=== PATIENT | female | born 1995 | race Asian ===

== ENCOUNTER 2019-10-30 12:11 | Emergency (ER) | payer OTHER ==
[~2019-10-30] VITALS: Ht 162.6 cm; Wt 54.4 kg
[2019-10-30 12:30] VITALS: BP 101/62
--- NOTE | 2019-10-30 12:49 | Diagnostic Imaging Report ---
Indication: Cough Technique: One view of the chest Comparison: none Findings: There is dense consolidation at the right lateral lung base. Left lung and bilateral pleural spaces are clear. Probable nipple shadow overlies the left lung base. The heart size is normal Impression: Evidence of right lateral basilar pneumonia This agrees with the preliminary interpretation provided overnight by [facility].
[2019-10-30] MEDS ORDERED: Azithromycin 250mg tab ORAL ONE (13:00)
[2019-10-30 13:13] LABS: BASOPHILS % (AUTO) 1.2 % (0.0-2.0); EOSINOPHILS % (AUTO) 0.1 % (0.0-3.0); HEMATOCRIT 43.6 % (37.0-47.0); HEMOGLOBIN 15.1 G/DL (12.0-16.0); LYMPHOCYTES % (AUTO) 5.3 % (20.0-45.0); MEAN CORPUSCULAR VOLUME 93 FL (80-99); MONOCYTES % (AUTO) 11.6 % (1.0-10.0); NEUTROPHILS % (AUTO) 81.9 % (45.0-75.0); PLATELET COUNT 243 K/UL (150-450); RED CELL DISTRIBUTION WIDTH 10.9 % (11.6-14.8); WHITE BLOOD COUNT 13.2 K/UL (4.8-10.8)
--- NOTE | 2019-10-30 13:14 | NUR ---
ED Nurse Note: Patient arrived to ED by car from home c/o flu-like s/s for 1 week. Patient has 8/10 neck pain. Patient AxO x 4, VSS. No s/s of acute distress. Bed in lowest position.
[2019-10-30 13:18] LABS: APPEARANCE,URINE CLEAR; BILIRUBIN, URINE NEGATIVE (NEGATIVE); GLUCOSE, URINE (UA) NEGATIVE (NEGATIVE); KETONES,URINE 3+ (NEGATIVE); LEUKOCYTE ESTERASE ,URINE 1+ (NEGATIVE); NITRITE,URINE NEGATIVE (NEGATIVE); PH,URINE 6 (4.5-8.0); PROTEIN,URINE 2+ (NEGATIVE); UROBILINOGEN,URINE 1 MG/DL (0.0-1.0)
--- NOTE | 2019-10-30 13:21 | NUR ---
ED Nurse Note: Zithromax given to DEEJAY Alvarez as patient felt nauseous.
[2019-10-30 13:27] LABS: ANION GAP 10 mmol/L (5-15); BLOOD UREA NITROGEN 11 mg/dL (7-18); CALCIUM 8.8 MG/DL (8.5-10.1); CARBON DIOXIDE 29 MMOL/L (21-32); CHLORIDE 103 MMOL/L (98-107); CREATININE 0.8 MG/DL (0.55-1.30); POTASSIUM 3.6 MMOL/L (3.5-5.1); SODIUM 142 MMOL/L (136-145)
[2019-10-30 13:30] LABS: ALANINE AMINOTRANSFERASE 19 U/L (12-78); ALBUMIN 3.5 G/DL (3.4-5.0); ALBUMIN/GLOBULIN RATIO 0.8 (1.0-2.7); ALKALINE PHOSPHATASE 58 U/L (46-116); ASPARTATE AMINO TRANSFERASE 15 U/L (15-37); BILIRUBIN,TOTAL 0.3 MG/DL (0.2-1.0)
[2019-10-30 13:32] LABS: COLOR,URINE YELLOW
--- NOTE | 2019-10-30 13:37 | Emergency Room Report ---
History of Present Illness General Chief Complaint: Flu Like Symptoms Source: Patient Present Illness HPI 24-year-old female with no significant past medical history here complaining of 1 week of fever, headache, neck pain, chills, shortness of breath, and cough. Patient reports that she was seen earlier this week at the urgent care and was given tramadol for neck pain. No imaging was done. Patient denies any recent travel, or living with rheumatoid. No meningismus is noted. Patient has full range of motion of her neck. Patient appears to be febrile upon arrival. Reports that she has been taking Tylenol and ibuprofen for symptom relief. Denies any chest pain, palpitation, abdominal pain, urinary frequency at this time. Patient complains of nausea and few bouts of nonbloody emesis. Denies diarrhea. Denies all other associated symptoms. Denies drug use, tobacco smoke , alcohol intake. Allergies: Coded Allergies: APPLE (Verified Allergy, Mild, itchy throat and mouth, 10/30/19) PEACH (Verified Allergy, Mild, itchy throat and mouth, 10/30/19) PEAR (Verified Allergy, Mild, itchy throat and mouth, 10/30/19) Patient History Past Medical History: see triage record Past Surgical History: unable to obtain Pertinent Family History: none Last Menstrual Period: unk, pt has IUD Now: No Immunizations: UTD Reviewed Nursing Documentation: PMH: Agreed; PSxH: Agreed Nursing Documentation-PMH Hx Neurological Problems: Yes - chronic migraines Review of Systems All Other Systems: negative except mentioned in HPI Physical Exam Vital Signs Date Time Temp Pulse Resp B/P (MAP) Pulse Ox O2 Delivery O2 Flow Rate FiO2 10/30/19 12:18 100.2 123 18 101/62 (75) 93 Room Air Sp02 EP Interpretation: reviewed, normal General Appearance: no apparent distress, alert, GCS 15, non-toxic Head: normocephalic, atraumatic Eyes: bilateral eye normal inspection, bilateral eye PERRL ENT: hearing grossly normal, no angioedema, normal voice, nasal congestion, tonsillar swelling Neck: full range of motion, supple, thyroid normal, no meningismus, no bony tend, supple/symm/no masses Respiratory: chest non-tender, no rhonchi, no respiratory distress, no retraction, no accessory muscle use, crackles - RLL Cardiovascular #1: normal inspection, normal peripheral pulses, no murmur Cardiovascular #2: 2+ carotid (R), 2+ carotid (L), 2+ radial (R), 2+ radial (L) Gastrointestinal: non tender, soft Rectal: deferred Genitourinary: no CVA tenderness Musculoskeletal: back normal, normal range of motion, no calf tenderness, gait/ station normal, non-tender Neurologic: alert, motor strength/tone normal, oriented x3, sensory intact, responsive, speech normal Psychiatric: judgement/insight normal Skin: no rash Lymphatic: no adenopathy Medical Decision Making PA Attestation All my diagnosis and treatment plans were reviewed ad discussed with my supervising physician Dr. Walls Diagnostic Impression: Primary Impression: Pneumonia Additional Impression: Nausea & vomiting ER Course 24-year-old female with no significant past medical history here complaining of 1 week of fever, headache, neck pain, chills, shortness of breath, and cough. Patient reports that she was seen earlier this week at the urgent care and was given tramadol for neck pain. No imaging was done. Patient denies any recent travel, or living with rheumatoid. No meningismus is noted. Patient has full range of motion of her neck. Patient appears to be febrile upon arrival. Reports that she has been taking Tylenol and ibuprofen for symptom relief. Denies any chest pain, palpitation, abdominal pain, urinary frequency at this time. Patient complains of nausea and few bouts of nonbloody emesis. Denies diarrhea. Denies all other associated symptoms. Denies drug use, tobacco smoke , alcohol intake. Ddx considered but are not limited to: Meningitis, strep pharyngitis, bronchitis , PNA, URI viral, bacterial bronchitis, appendicitis Vital signs: are WNL, pt. is febrile H&PE are most consistent with: Pneumonia, nausea vomiting ORDERS: Chest x-ray, EKG, CBC, CMP, UA, urine tox screen, urine test, azithromycin, Phenergan, albuterol, Zofran ED INTERVENTIONS: Zofran, NS bolus DISCHARGE: At this time pt. is stable for d/c to home. Will provide printed patient care instructions, and any necessary prescriptions. Care plan and follow up instructions have been discussed with the patient prior to discharge. Due to patient being young and having no comorbidities remained stable patient to be discharged and treated as an outpatient for pneumonia. Nausea vomiting secondary to her pneumonia. Patient to follow with primary care provider, worsening symptoms return to emergency room. At this time very low suspicion for meningitis patient tested negative for meningismus no photophobia was noted. Patient blood count was within normal limits. However advised patient to return to the emergency room with increased fever, headache, photophobia, dizziness, neck stiffness. EKG Diagnostic Results ST Segments: no acute changes Chest X-Ray Diagnostic Results Chest X-Ray Diagnostic Results : Chest X-Ray Ordered: Yes # of Views/Limited/Complete: 1 View Indication: Shortness of Breath EP Interpretation: Yes ARI Xray: Interpretation reviewed, by supervising MD, and agrees with findings. Interpretation: other - Infiltrates noted in the right lower lobe Impression: Other - Pneumonia Electronically Signed by: Daniel Richards PA-C Last Vital Signs Date Time Temp Pulse Resp B/P (MAP) Pulse Ox O2 Delivery O2 Flow Rate FiO2 10/30/19 12:30 123 18 Room Air 10/30/19 12:30 100.2 101/62 93 Disposition: HOME, SELF-CARE Condition: Stable Scripts Albuterol Sulfate (VENTOLIN HFA) 18 Gm Hfa.aer.ad 2 PUFFS INH EVERY 6 HOURS, #18 GM 0 Refills Prov: Daniel Barnes 10/30/19 Ondansetron (Zofran) 4 Mg Tablet 4 MG ORAL Q6H PRN for Nausea & Vomiting, #10 TAB Prov: Daniel Barnes 10/30/19 Promethazine Hcl (PROMETHAZINE HCL*) 6.25 Mg/5 Ml Syrup 5 ML ORAL Q6H, #120 ML 0 Refills Prov: Daniel Barnes 10/30/19 Azithromycin* (ZITHROMAX*) 250 Mg Tablet 250 MG ORAL DAILY, #6 TAB 0 Refills Take two tables once daily for 1 day, then one tablet once daily for 4 days. Prov: Daniel Barnes 10/30/19 Referrals: NOT CHOSEN IPA/,REFERRING (PCP) Patient Instructions: Community-Acquired Pneumonia, Adult, [id number], Nausea and Vomiting, Adult, [id number] Additional Instructions: Take medication as directed, increase oral hydration, follow-up with your primary care provider and if worsening symptoms return to the emergency room. Daniel Barnes Oct 30, 2019 13:37
[2019-10-30] MEDS ORDERED: VENTOLIN HFA18 GM INH (13:40)
[2019-10-30] MEDS ORDERED: PROMETHAZI6.25 MG/1 ORAL (13:40)
[2019-10-30] MEDS ORDERED: ZOFRAN4 M1 ORAL (13:40)
[2019-10-30] MEDS ORDERED: ZITHROMAX250 MG ORAL (13:40)
[2019-10-30 14:05] VITALS: BP 101/62
--- NOTE | 2019-10-30 14:05 | NUR ---
ER DISCHARGE NOTE: Patient cleared for DC by Daniel CHAPMAN. Patient AxO x 4, VSS, no s/s of acute distress. ID band removed. Patient verbalized understanding of DC instructions. Patient can ambulate with steady gait and took all belongings.
== END 2019-10-30 14:05 | disposition home or self-care (01) ==
LOC: EMR 12:35
DX: J18.9 Pneumonia, unspecified organism (principal); R11.2 Nausea with vomiting, unspecified; Z91.018 Allergy to other foods
CPT/HCPCS: 36415; 71045; 80053; 81003; 81025; 85025; 96374; 99284; J2405